=== PATIENT | female | born 1975 | race Caucasian/White ===

== ENCOUNTER 2017-03-19 23:51 | Inpatient (IN) | payer OTHER ==
[2017-03-20] MEDS ORDERED: POLYCILLIN/NS 2 GM/100 ML 2 GM/100 ML BAG IV ONE ×2 (00:39→00:51)
[2017-03-20] MEDS ORDERED: LACTATED RINGERS 1,000 ML ONE (00:39)
[2017-03-20] MEDS ORDERED: SUBLIMAZE IV PRN (00:42)
[2017-03-20] MEDS: LACTATED RINGERS 1,000 ML IV SCH ×3 (00:50→04:46)
[2017-03-20] MEDS ORDERED: BRETHINE SUB-Q PRN (00:51)
[2017-03-20] MEDS ORDERED: ePHEDrine SULFATE IV PRN ×2 (00:51→02:54)
[2017-03-20] MEDS ORDERED: MINERAL OIL PO PRN (00:51)
[2017-03-20] MEDS ORDERED: BRETHINE IVP PRN (00:51)
[2017-03-20] MEDS ORDERED: ZOFRAN IV PRN ×2 (00:51→06:03)
[2017-03-20] MEDS ORDERED: XYLOCAINE 2% INFILTRATI ONE (00:51)
--- NOTE | 2017-03-20 00:51 | History and Physical Report ---
History of Present Illness Date of examination: 03/20/17 Date of admission: 03/20/17 00:46 Chief complaint: Painful contractions History of present illness: 41-year-old at 39 weeks presents in active labor, she is a [facility] patient. 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 course complicated by gestational diabetes well controlled with medication. 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 denies: smoking, alcohol abuse, prescription drug abuse, IV drug use - Obstetrical History Expected Date of Delivery: 03/25/17 Actual Gestation: 39 Week(s) 2 Day(s) : 3 Para: 2 Medications and Allergies Allergies Allergy/AdvReac Type Severity Reaction Status Date / Time No Known Allergies Allergy Verified 03/19/17 23:57 Active Meds: Active Medications Fentanyl (Sublimaze) 100 mcg IV Q2HR PRN PRN Reason: Pain Lactated Ringer's (Lactated Ringers) 1,000 mls @ 125 mls/hr IV DIRECT [facility] Review of Systems Constitutional: no fever, no chills, no fatigue, no weakness Cardiovascular: no chest pain, no orthopnea, no palpitations, no syncope, no lightheadedness, no shortness of breath, no dyspnea on exertion, no paroxysmal nocturnal dyspnea, no high blood pressure Respiratory: no shortness of breath, no dyspnea on exertion, no congestion, no respiratory infections, no home oxygen Gastrointestinal: no abdominal pain, no nausea, no vomiting, no heartburn, no indigestion Genitourinary: leakage of fluid, contractions, no vaginal bleeding, no vaginal discharge - Vital Signs Vital signs: Vital Signs Temp Resp 98.7 F 20 03/20/17 00:40 03/20/17 00:40 Temp Pulse Resp BP Pulse Ox 98.7 F 114 H 20 138/79 03/20/17 00:40 03/20/17 00:43 03/20/17 00:40 03/20/17 00:43 - Physical Exam Cardiovascular: Regular rate, Normal S1, Normal S2 Lungs: Positive: Clear to auscultation, Normal air movement Abdomen: Positive: normal appearance, soft. Negative: distention, tenderness, guarding, rigidity Genitourinary (Female): Positive: normal external genitalia Uterus: Positive: enlarged (EFW ~ 3800). Negative: tender Adnexa: both: normal Extremities: Positive: normal - Obstetrical FHR: category 2 (minimal variability, and tachycardia, no decelerations) Cervical Dilatation: 4.5 Results All other labs normal. Assessment and Plan A: 41-year-old 002 at 39+2 in active labor -Cat 2 tracing (minimal variability and tachycardia, no decelerations) -GDM but unsure of medication (no Prenatals at this time) P: -Admit -Routine labs -GBS prophylaxis -SSI -Oxygen, IV hydration -Epidural prn -Anticipate normal vaginal delivery - Patient Problems (1) 39 weeks gestation of Current Visit: Yes Status: Acute (2) Active labor at term Current Visit: Yes Status: Acute
[2017-03-20] MEDS ORDERED: PITOCin/NS 30 UNIT/500ML 30 UNITS/500 ML BAG IV SCH ×2 (01:00)
[2017-03-20] MEDS ORDERED: LACTATED RINGERS 1,000 ML IV SCH (01:00)
[2017-03-20] MEDS ORDERED: PITOCin/NS 20 UNIT/1000ML DRIP 20 UNITS/1,000 ML BAG IV SCH ×2 (01:00→07:00)
[2017-03-20] MEDS ORDERED: D50W (25GM) Syringe IV PRN ×2 (01:03→06:06)
[2017-03-20 01:04] LABS: Hemoglobin 12.2 gm/dl (10.1-14.3); Mean Corpuscular HGB Conc 34 % (30-34); Mean Corpuscular Hemoglobin 28 pg (28-32); Mean Corpuscular Volume 83 fl (79-97); Platelet Count 233 K/mm3 (140-440); Red Blood Count 4.35 M/mm3 (3.65-5.03); Red Cell Distribution Width 14.9 % (13.2-15.2); White Blood Count 15.5 K/mm3 (4.5-11.0)
[2017-03-20] MEDS ORDERED: ePHEDrine SULFATE ONE (02:27)
[2017-03-20] MEDS ORDERED: NARCAN 2 MG/2 ML IV PRN (02:54)
--- NOTE | 2017-03-20 02:54 | Anesthesia Consultation ---
Anesthesia Consult and Med Hx Date of service: 03/20/17 - Airway Anesthetic Teeth Evaluation: Good ROM Head & Neck: Adequate Mental/Hyoid Distance: Adequate Mallampati Class: Class II Intubation Access Assessment: Probably Good - Pulmonary Exam CTA: Yes - Cardiac Exam Cardiac Exam: RRR - Pre-Operative Health Status ASA Pre-Surgery Classification: ASA2 Proposed Anesthetic Plan: Epidural - Pulmonary Hx Asthma: No COPD: No Hx Pneumonia: No - Cardiovascular System Hx Hypertension: No - Central Nervous System Hx Seizures: No Hx Psychiatric Problems: No - Endocrine Hx Renal Disease: No Hx End Stage Renal Disease: No Hx Hypothyroidism: No Hx Hyperthyroidism: No - Hematic Hx Anemia: No Hx Sickle Cell Disease: No - Other Systems Hx Alcohol Use: No
[2017-03-20] MEDS ORDERED: fentaNYL-BUPIV 2 MCG/ML-0.125% 200 MCG/100 ML BAG EPIDURAL SCH (03:00)
[2017-03-20] MEDS ORDERED: TYLENOL PO PRN ×2 (03:03→06:03)
--- NOTE | 2017-03-20 03:18 | Event Note ---
Date: 03/20/17 Patient with low-grade temp and tachycardia, will treat with oral acetaminophen at this time
[2017-03-20] MEDS ORDERED: POLYCILLIN/NS 1 GM/50 ML 1 GM/50 ML BAG IV SCH (04:52)
--- NOTE | 2017-03-20 05:59 | Procedure Note ---
OB Delivery Note - Delivery Date of Delivery: 03/20/17 Surgeon: SAM COSTA Estimated blood loss: 200cc - Vaginal Delivery presentation: vertex Delivery position: OA Intrapartum events: febrile- temp >100.3, foul smelling fluid, extend. tachycardia Delivery induction: none Delivery augmentation: pitocin Delivery monitor: external FHT, external uterine Route of delivery: Delivery placenta: spontaneous Delivery cord: nuchal cord, 3 umbilical vessels Episiotomy: none Delivery laceration: 2nd degree Delivery repair: vicryl Anesthesia: epidural - A at 1 minute: 8 at 5 minutes: 9 Infant Gender: Female (Time of delivery is 05:32, weight is 7#1 or 3203 g)
[2017-03-20] MEDS ORDERED: BENADRYL PO PRN (06:03)
[2017-03-20] MEDS ORDERED: PHENERGAN PO PRN (06:03)
[2017-03-20] MEDS ORDERED: MILK OF MAGNESIA PO PRN (06:03)
[2017-03-20] MEDS ORDERED: NORCO 5/325 PO PRN (06:03)
[2017-03-20] MEDS ORDERED: TUCKS PAD TP PRN (06:03)
[2017-03-20] MEDS ORDERED: LANSINOH TP PRN (06:03)
[2017-03-20] MEDS ORDERED: DULCOLAX PR PRN (06:03)
[2017-03-20] MEDS ORDERED: PHENERGAN PR PRN (06:03)
[2017-03-20] MEDS ORDERED: SODIUM CHLORIDE FLUSH SYRINGE 10 ML IV NR (07:00)
[2017-03-20] MEDS ORDERED: DERMOPLAST TP PRN (09:16)
[2017-03-20] MEDS: FEOSOL PO SCH (10:14)
[2017-03-20] MEDS: PRENATAL VITAMIN PO SCH (10:14)
[2017-03-20] MEDS: COLACE PO SCH (10:14)
[2017-03-20] MEDS: MOTRIN PO SCH ×2 (12:05→17:45)
[2017-03-20] MEDS ORDERED: LACTATED RINGERS 500 ML IV ONE (17:48)
[2017-03-20] MEDS ORDERED: GARAMYCIN 120 MG in NACL 0.9% 100 ML IV ONE (18:00)
--- NOTE | 2017-03-20 18:14 | Event Note ---
Date: 03/20/17 Notified by nurse that patient's BP is lower than it had been earlier today. BP 86/60; Temp 98.5. Called and notified Dr. Lacy of these vital signs. Dr. Lacy came to bedside and evaluated patient. Manual pulse obtained by Dr. Lacy is 128 bpm. Patient denies headache, dizziness, weakness, chills, fever, nausea or vomiting , abdominal pain or pelvic pain, dysuria, heavy vaginal bleeing, foul smelling discharge, or perineal pain. Patient denies chest pain, shortness of breath, or cough. Patient reports that she feels fine. She states she has been ambulating without difficulty and voiding well. She states she is not in any pain and her appetite is good. Patient is well appearing, alert, oriented, in no apparent distress. She is standing beside the bed and ambulating in the room without difficulty. Abdomen is soft, nontender; funds is firm and midline. Lochia is light and perineal stitches are intact. Probable endometritis. Stat CBC with manual diff, urine culture ordered. Per Dr. Lacy's direct order , IV Ampicillin and Gentamicin ordered. Will follow vital signs closely. Discussed this plan of care with patient and family and patient states she is in agreement with this plan of care.
[2017-03-20] MEDS ORDERED: POLYCILLIN 1,000 MG in NACL 0.9% 50 ML IV SCH (18:30)
[2017-03-20] MEDS ORDERED: GARAMYCIN/NS 120MG/100ML 120 MG/100 ML BAG IV ONE (18:30)
[2017-03-20 18:36] LABS: Basophils % (Auto) 0.2 % (0.0-1.8); Eosinophils % (Auto) 0.3 % (0.0-4.3); Hematocrit 33.2 % (30.3-42.9); Hemoglobin 11.3 gm/dl (10.1-14.3); Mean Corpuscular HGB Conc 34 % (30-34); Mean Corpuscular Hemoglobin 28 pg (28-32); Mean Corpuscular Volume 83 fl (79-97); Platelet Count 231 K/mm3 (140-440); Red Blood Count 3.99 M/mm3 (3.65-5.03); Red Cell Distribution Width 15.2 % (13.2-15.2); White Blood Count 13.6 K/mm3 (4.5-11.0)
[2017-03-20 19:10] LABS: Anion Gap 18 mmol/L; BUN/Creatinine Ratio 12; Blood Urea Nitrogen 7 mg/dL (7-17); Calcium 8.5 mg/dL (8.4-10.2); Carbon Dioxide 17 mmol/L (22-30); Chloride 102.3 mmol/L (98-107); Glucose 164 mg/dL (65-100); Potassium 3.6 mmol/L (3.6-5.0); Sodium 134 mmol/L (137-145)
[2017-03-21] MEDS: MOTRIN PO SCH ×3 (00:05→17:43)
[2017-03-21] MEDS: POLYCILLIN/NS 1 GM/50 ML 1 GM/50 ML BAG IV SCH ×6 (00:27→18:10)
[2017-03-21] MEDS: FEOSOL PO SCH ×2 (00:36→11:26)
[2017-03-21] MEDS: COLACE PO SCH ×2 (00:36→11:26)
[2017-03-21 06:11] LABS: Anion Gap TNR mmol/L; BUN/Creatinine Ratio TNR; Blood Urea Nitrogen TNR mg/dL (7-17); Calcium TNR mg/dL (8.4-10.2); Carbon Dioxide TNR mmol/L (22-30); Chloride TNR mmol/L (98-107); Glucose TNR mg/dL (65-100); Potassium TNR mmol/L (3.6-5.0); Sodium TNR mmol/L (137-145)
[2017-03-21] MEDS ORDERED: LACTATED RINGERS 1,000 ML ONE (06:51)
[2017-03-21 08:17] LABS: Anion Gap 17 mmol/L; BUN/Creatinine Ratio 12; Blood Urea Nitrogen 6 mg/dL (7-17); Calcium 8.4 mg/dL (8.4-10.2); Carbon Dioxide 19 mmol/L (22-30); Glucose 121 mg/dL (65-100); Potassium 3.7 mmol/L (3.6-5.0); Sodium 137 mmol/L (137-145)
[2017-03-21] MEDS ORDERED: GARAMYCIN 80 MG in NACL 0.9% 100 ML IV SCH ×2 (09:00→17:45)
[2017-03-21] MEDS: GARAMYCIN/NS 80 MG/100 ML 100 ML IV SCH ×2 (10:05→17:44)
--- NOTE | 2017-03-21 10:17 | Progress Note ---
Assessment and Plan A: day 1 S/P vaginal delivery of liveborn female on 03/20/17. endometritis. P: Continue Ampicillin and Gentamicin. Encouraged ambulation. Subjective - Subjective Date of service: 03/21/17 Principal diagnosis: day 1 S/P vaginal delivery of liveborn female Interval history: day 1 S/P vaginal delivery. Patient had temperature elevation during labor but has not had since. Yesterday afternoon mild tachycardia and drop in BP was noted. Patient was evaluated by Dr. Lacy and antibiotics were started (Ampicillin and Gentamicin). Patient states she is feeling well. She reports small amount of lochia. She is voiding without difficulty, passing gas, ambulating well, and tolerating a regular diet. Patient denies headache, cough, shortness of breath, chest pain, dizziness, weakness, abdominal pain, nausea or vomiting, leg pain, or foul smelling discharge. Patient reports: appetite normal, voiding normally, pain well controlled, flatus , ambulating normally [place]: doing well Objective - Vital Signs Latest vital signs: Vital Signs Temp Pulse Resp BP BP 03/21/17 08:55 98.3 F 78 20 89/48 03/21/17 01:05 98.4 F 74 20 75/48 03/20/17 16:20 98.5 F 82 20 78/48 74/51 03/20/17 14:23 86/60 84/60 03/20/17 12:30 98.4 F 88 22 80/50 82/52 Intake and Output 03/20/17 03/21/17 03/21/17 23:59 07:59 15:59 Intake Total 120 410 120 Balance 120 410 120 Intake: IV 50 POLYCILLIN/NS 1 GM/50 ML 50 1 gm In 50 ml @ 100 mls/ hr IV Q6HR [facility] Rx#: [id number] Oral 120 360 120 Other: Total, Intake Amount 120 240 120 # Voids Void 1 1 1 - Exam Breasts: Present: deferred Cardiovascular: Present: Regular rate, Normal S1, Normal S2, No murmurs Lungs: Present: Clear to auscultation Abdomen: Present: normal appearance, soft, normal bowel sounds. Absent: distention, tenderness, guarding, rigidity Uterus: Present: normal, firm, fundal height below umbilicus. Absent: bogginess , tenderness Extremities: Present: normal. Absent: tenderness, edema - Labs Labs: Abnormal lab results 03/20/17 03/20/17 03/21/17 Range/Units 17:52 18:22 01:19 WBC 13.6 H (4.5-11.0) K/mm3 Lymph % (Auto) 7.4 L (13.4-35.0) % Lymph # 1.0 L (1.2-5.4) K/mm3 Seg Neutrophils % 89.5 H (40.0-70.0) % Seg Neutrophils # 12.2 H (1.8-7.7) K/mm3 Sodium 134 L (137-145) mmol/L Carbon Dioxide 17 L (22-30) mmol/L BUN (7-17) mg/dL Creatinine 0.6 L (0.7-1.2) mg/dL Glucose 164 H (65-100) mg/dL POC Glucose 147 H (70-105) 03/21/17 03/21/17 Range/Units 06:43 06:52 WBC (4.5-11.0) K/mm3 Lymph % (Auto) (13.4-35.0) % Lymph # (1.2-5.4) K/mm3 Seg Neutrophils % (40.0-70.0) % Seg Neutrophils # (1.8-7.7) K/mm3 Sodium (137-145) mmol/L Carbon Dioxide 19 L (22-30) mmol/L BUN 6 L (7-17) mg/dL Creatinine 0.5 L (0.7-1.2) mg/dL Glucose 121 H (65-100) mg/dL POC Glucose 121 H (70-105)
[2017-03-21] MEDS: PRENATAL VITAMIN PO SCH (11:24)
[2017-03-21] MEDS: SENOKOT S PO SCH (13:11)
[2017-03-22] MEDS: MOTRIN PO SCH ×4 (00:15→17:25)
[2017-03-22] MEDS: POLYCILLIN/NS 1 GM/50 ML 1 GM/50 ML BAG IV SCH ×4 (00:30→12:06)
[2017-03-22] MEDS: GARAMYCIN/NS 80 MG/100 ML 100 ML IV SCH ×2 (02:04→09:20)
[2017-03-22] MEDS: FEOSOL PO SCH ×3 (02:06→22:01)
[2017-03-22] MEDS: COLACE PO SCH ×3 (02:07→22:02)
[2017-03-22] MEDS: PRENATAL VITAMIN PO SCH (09:19)
--- NOTE | 2017-03-22 11:44 | Progress Note ---
Assessment and Plan A: day 2 S/P vaginal delivery. endometritis. P: Will discontinue antibiotics. Will discharge patient home this evening if OK with Dr. Lacy. Discussed instructions and warning signs with patient. Subjective - Subjective Date of service: 03/22/17 Principal diagnosis: day 2 S/P vaginal delivery of liveborn female Interval history: day 2 S/P vaginal delivery. Patient is doing well. She reports small amount of lochia and no large clots. Patient is voiding without difficulty and ambulating well. Tolerating a regular diet without nausea or vomiting. Patient denies headache, chest pain, cough, shortness of breath, abdominal pain, nausea or vomiting, leg pain, symptoms of depression or any other problems. Patient reports: appetite normal, voiding normally, pain well controlled, flatus , ambulating normally : doing well Objective - Vital Signs Latest vital signs: Vital Signs Temp Pulse Resp BP 03/22/17 08:35 98 F 75 18 95/68 03/22/17 00:25 97.3 F L 77 20 90/62 03/21/17 17:35 98.1 F 67 20 89/57 Intake and Output 03/21/17 03/22/17 03/22/17 23:59 07:59 15:59 Intake Total 750 510 240 Balance 750 510 240 Intake: IV 150 150 Garamycin/Ns 80 mg/100 ml 100 100 100 ml @ 200 mls/hr IV Q8H [facility] Rx#:[id number] POLYCILLIN/NS 1 GM/50 ML 50 50 1 gm In 50 ml @ 100 mls/ hr IV Q6HR [facility] Rx#: [id number] Oral 600 360 240 Other: Total, Intake Amount 240 120 240 # Voids Void 1 1 1 - Exam Breasts: Present: deferred Cardiovascular: Present: Regular rate, Normal S1, Normal S2 Lungs: Present: Clear to auscultation Abdomen: Present: normal appearance, soft, normal bowel sounds. Absent: distention, tenderness, guarding, rigidity Uterus: Present: normal, firm, fundal height below umbilicus. Absent: bogginess , tenderness Extremities: Present: normal. Absent: tenderness, edema
[2017-03-22 13:34] LABS: Hematocrit 28.1 % (30.3-42.9); Hemoglobin 9.6 gm/dl (10.1-14.3); Mean Corpuscular HGB Conc 34 % (30-34); Mean Corpuscular Hemoglobin 29 pg (28-32); Mean Corpuscular Volume 84 fl (79-97); Platelet Count 192 K/mm3 (140-440); Red Blood Count 3.35 M/mm3 (3.65-5.03); Red Cell Distribution Width 15.5 % (13.2-15.2); White Blood Count 7.9 K/mm3 (4.5-11.0)
[2017-03-22 15:46] LABS: Blastocytes % (Manual) 0 %
[2017-03-22 15:47] LABS: Basophils % (Manual) 0 % (0.0-1.8)
[2017-03-22 15:48] LABS: Anisocytosis 1+; Hypochromasia 1+; Smudge Cells 1+
[2017-03-22 15:49] LABS: Diff Status Complete; Platelet Estimate Consistent w Auto
--- NOTE | 2017-03-22 16:06 | Event Note ---
Date: 03/22/17 TSH mildly abnormal at 6.550. Pulse [address] Lacy and Dr. Lacy states to keep patient in hospital tonight and obtain hospitalist consult. Spoke with Dr. Driscoll t 16:00 and ordered consult in computer. Discussed this plan with patient and family.
[2017-03-23] MEDS: SENOKOT S PO SCH (05:35)
[2017-03-23] MEDS: MOTRIN PO SCH ×2 (05:36→12:14)
--- NOTE | 2017-03-23 08:03 | Consultation ---
History of Present Illness - Reason for Consult Consult date: 03/23/17 High TSH Requesting physician: MIKE BURRIS - History of Present Illness [place]: Consulted for High TSH.No history of Hypothyroidism. 3 days. Past Medical History: no pertinent history Past Surgical History: no surgical history [employer] History: denies: chlamydia, gonorrhea, hepatitis B, hepatitis C, herpes, HIV , syphilis, trichomonas Social history: full code. denies: smoking, alcohol abuse, prescription drug abuse, IV drug use Past History Past Medical History: anemia Social history: full code. denies: smoking, alcohol abuse, prescription drug abuse, IV drug use Medications and Allergies Allergies Allergy/AdvReac Type Severity Reaction Status Date / Time No Known Allergies Allergy Verified 03/19/17 23:57 Home Medications Medication Instructions Recorded Confirmed Last Taken Type HYDROcodone/ACETAMINOPHEN [[place] 1 each PO Q6HR #7 tablet 03/20/17 Unknown Rx 5-325 Tablet] Ibuprofen [Motrin 600 MG tab] 600 mg PO Q8H PRN #30 tablet 03/20/17 Unknown Rx Multivitamin with Iron 1 each PO DAILY #30 tablet 03/20/17 Unknown Rx [Multivitamins with Iron] Vit-Fe Fumar-FA [ 1 tab PO QDAY 03/20/17 03/20/17 03/19/17 History Vitamin] Active Meds: Active Medications Acetaminophen (Tylenol) 650 mg PO Q4H PRN PRN Reason: Pain MILD(1-3)/Fever >100.5/FIELD Acetaminophen/Hydrocodone Bitart ([place] 5/325) 2 each PO Q6H PRN PRN Reason: Pain, Moderate (4-6) Last Admin: 03/22/17 00:55 Dose: 2 each Benzocaine/Menthol (Dermoplast) 1 spray TP PRN PRN PRN Reason: Episiotomy Pain Last Admin: 03/20/17 10:15 Dose: 1 spray Bisacodyl (Dulcolax) 10 mg [place] BID PRN PRN Reason: Constipation Diphenhydramine HCl (Benadryl) 25 mg PO Q6H PRN PRN Reason: Itching Docusate Sodium (Colace) 100 mg PO BID [facility] Last Admin: 03/22/17 22:02 Dose: 100 mg Ferrous Sulfate (Feosol) 325 mg PO BID [facility] Last Admin: 03/22/17 22:01 Dose: 325 mg Oxytocin/Sodium Chloride (Pitocin/Ns 20 Unit/1000ml Drip) 20 units in 1,000 mls @ 250 mls/hr IV DIRECT [facility] Last Admin: 03/20/17 05:50 Dose: 250 mls/hr Ibuprofen (Motrin) 600 mg PO Q6H [facility] Last Admin: 03/23/17 05:36 Dose: Not Given Insulin Human Regular (Novolin R) 0 units SUB-Q Q6HR [facility] PRN Reason: Protocol Last Admin: 03/23/17 01:03 Dose: Not Given Magnesium Hydroxide (Milk Of Magnesia) 30 ml PO HS PRN PRN Reason: Constipation Multi-Ingredient Ointment (Lansinoh) 1 applic TP PRN PRN PRN Reason: Sore Nipples Multivitamins/Iron/Calcium ( Vitamin) 1 each PO QDAY [facility] Last Admin: 03/22/17 09:19 Dose: 1 each Promethazine HCl (Phenergan) 25 mg AK Q6H PRN PRN Reason: Nausea And Vomiting Promethazine HCl (Phenergan) 25 mg PO Q6H PRN PRN Reason: Nausea And Vomiting Senna/Docusate Sodium (Senokot S) 2 tab PO Q12H [facility] Last Admin: 03/23/17 05:35 Dose: Not Given Witch [place]/Glycerin (Tucks Pad) 1 each TP PRN PRN PRN Reason: Hemorrhoid/cleansing/soothing Last Admin: 03/20/17 10:16 Dose: 1 each Review of Systems All systems: negative Exam - Constitutional Vitals: Temp Pulse Resp BP Pulse Ox 98.6 F 66 18 108/70 97 03/23/17 00:40 03/23/17 00:40 03/23/17 05:36 03/23/17 00:40 03/20/17 07:09 General appearance: Present: no acute distress, well-nourished - EENT Eyes: Present: PERRL ENT: hearing intact, clear oral mucosa - Neck Neck: Present: supple, normal ROM - Respiratory Respiratory effort: normal Respiratory: bilateral: CTA - Cardiovascular Heart Sounds: Present: S1 & S2. Absent: rub, click - Extremities Extremities: pulses symmetrical, No edema Peripheral Pulses: within normal limits - Abdominal General gastrointestinal: Present: soft, non-tender, non-distended, normal bowel sounds Female genitourinary: Present: normal - Integumentary Integumentary: Present: clear, warm, dry - Musculoskeletal Musculoskeletal: gait normal, strength equal bilaterally - Psychiatric Psychiatric: appropriate mood/affect, intact judgment & insight - Neurologic Neurologic: CNII-XII intact, moves all extremities Results - Labs CBC & Chem 7: 03/22/17 13:13 03/21/17 06:52 Labs: Abnormal lab results 03/22/17 03/22/17 03/23/17 Range/Units 13:13 13:13 00:41 RBC 3.35 L (3.65-5.03) M/mm3 Hgb 9.6 L (10.1-14.3) gm/dl Hct 28.1 L (30.3-42.9) % RDW 15.5 H (13.2-15.2) % Seg Neuts % (Manual) 76.0 H (40.0-70.0) % Lymphocytes % (Manual) 10.0 L (13.4-35.0) % Lymphocytes # (Manual) 0.8 L (1.2-5.4) K/mm3 POC Glucose 112 H (70-105) TSH 6.550 H (0.270-4.200) mlU/mL Short CBC 03/22/17 Range/Units 13:13 WBC 7.9 (4.5-11.0) K/mm3 Hgb 9.6 L (10.1-14.3) gm/dl Hct 28.1 L (30.3-42.9) % Plt Count 192 (140-440) K/mm3 Assessment and Plan - Patient Problems (1) Elevated TSH Current Visit: Yes Status: Acute Plan to address problem: Possibly sec to Sick Euthyroid syndrome.Check Thyroid profile.Patient may follow with pcp for Thyroid profile.No Synthyroid at this time. Patient is cleared for discharge after thyroid profile is drawn.
--- NOTE | 2017-03-23 08:06 | Progress Note ---
<FLAQUITO GARCIA S - Last Filed: 03/23/17 08:08> Hospitalist Physical - Constitutional Vitals: Temp Pulse Resp BP Pulse Ox 98.6 F 66 18 108/70 97 03/23/17 00:40 03/23/17 00:40 03/23/17 05:36 03/23/17 00:40 03/20/17 07:09 Results - Labs CBC & Chem 7: 03/22/17 13:13 03/21/17 06:52 Labs: Laboratory Last Values WBC 7.9 K/mm3 (4.5-11.0) 03/22/17 13:13 RBC 3.35 M/mm3 (3.65-5.03) L 03/22/17 13:13 Hgb 9.6 gm/dl (10.1-14.3) L 03/22/17 13:13 Hct 28.1 % (30.3-42.9) L 03/22/17 13:13 MCV 84 fl (79-97) 03/22/17 13:13 MCH 29 pg (28-32) 03/22/17 13:13 MCHC 34 % (30-34) 03/22/17 13:13 RDW 15.5 % (13.2-15.2) H 03/22/17 13:13 Plt Count 192 K/mm3 (140-440) 03/22/17 13:13 Lymph % (Auto) 7.4 % (13.4-35.0) L 03/20/17 17:52 [place] % (Auto) 2.6 % (0.0-7.3) 03/20/17 17:52 Eos % (Auto) 0.3 % (0.0-4.3) 03/20/17 17:52 Baso % (Auto) Drop Hammer Mechanic 03/22/17 13:13 Lymph # 1.0 K/mm3 (1.2-5.4) L 03/20/17 17:52 [place] # 0.4 K/mm3 (0.0-0.8) 03/20/17 17:52 Eos # 0.0 K/mm3 (0.0-0.4) 03/20/17 17:52 Baso # 0.0 K/mm3 (0.0-0.1) 03/20/17 17:52 Add Manual Diff Complete 03/22/17 13:13 Total Counted 100 03/22/17 13:13 Seg Neutrophils % 89.5 % (40.0-70.0) H 03/20/17 17:52 Seg Neuts % (Manual) 76.0 % (40.0-70.0) H 03/22/17 13:13 Band Neutrophils % 11.0 % 03/22/17 13:13 Lymphocytes % (Manual) 10.0 % (13.4-35.0) L 03/22/17 13:13 Reactive Lymphs % (Man) 0 % 03/22/17 13:13 Monocytes % (Manual) 2.0 % (0.0-7.3) 03/22/17 13:13 Eosinophils % (Manual) 1.0 % (0.0-4.3) 03/22/17 13:13 Basophils % (Manual) 0 % (0.0-1.8) 03/22/17 13:13 Metamyelocytes % 0 % 03/22/17 13:13 Myelocytes % 0 % 03/22/17 13:13 Promyelocytes % 0 % 03/22/17 13:13 Blast Cells % 0 % 03/22/17 13:13 Nucleated RBC % Not Reportable 03/22/17 13:13 Seg Neutrophils # 12.2 K/mm3 (1.8-7.7) H 03/20/17 17:52 Seg Neutrophils # Man 6.0 K/mm3 (1.8-7.7) 03/22/17 13:13 Band Neutrophils # 0.9 K/mm3 03/22/17 13:13 Lymphocytes # (Manual) 0.8 K/mm3 (1.2-5.4) L 03/22/17 13:13 Abs React Lymphs (Man) 0.0 K/mm3 03/22/17 13:13 Monocytes # (Manual) 0.2 K/mm3 (0.0-0.8) 03/22/17 13:13 Eosinophils # (Manual) 0.1 K/mm3 (0.0-0.4) 03/22/17 13:13 Basophils # (Manual) 0.0 K/mm3 (0.0-0.1) 03/22/17 13:13 Metamyelocytes # 0.0 K/mm3 03/22/17 13:13 Myelocytes # 0.0 K/mm3 03/22/17 13:13 Promyelocytes # 0.0 K/mm3 03/22/17 13:13 Blast Cells # 0.0 K/mm3 03/22/17 13:13 WBC Morphology Not Reportable 03/22/17 13:13 Hypersegmented Neuts Not Reportable 03/22/17 13:13 Hyposegmented Neuts Not Reportable 03/22/17 13:13 Hypogranular Neuts Not Reportable 03/22/17 13:13 Smudge Cells 1+ 03/22/17 13:13 Toxic Granulation Not Reportable 03/22/17 13:13 Toxic Vacuolation Not Reportable 03/22/17 13:13 Dohle Bodies Not Reportable 03/22/17 13:13 Pelger-Huet Anomaly Not Reportable 03/22/17 13:13 Ben Rods Not Reportable 03/22/17 13:13 Platelet Estimate Consistent w auto 03/22/17 13:13 Clumped Platelets Not Reportable 03/22/17 13:13 Plt Clumps, EDTA Not Reportable 03/22/17 13:13 Large Platelets Not Reportable 03/22/17 13:13 Giant Platelets Not Reportable 03/22/17 13:13 Platelet Satelliting Not Reportable 03/22/17 13:13 Plt Morphology Comment Not Reportable 03/22/17 13:13 RBC Morphology Not Reportable 03/22/17 13:13 Dimorphic RBCs Not Reportable 03/22/17 13:13 Polychromasia Not Reportable 03/22/17 13:13 Hypochromasia 1+ 03/22/17 13:13 Poikilocytosis Not Reportable 03/22/17 13:13 Anisocytosis 1+ 03/22/17 13:13 Microcytosis Not Reportable 03/22/17 13:13 Macrocytosis Not Reportable 03/22/17 13:13 Spherocytes Not Reportable 03/22/17 13:13 Pappenheimer Bodies Not Reportable 03/22/17 13:13 Sickle Cells Not Reportable 03/22/17 13:13 Target Cells Not Reportable 03/22/17 13:13 Tear Drop Cells Not Reportable 03/22/17 13:13 Ovalocytes Not Reportable 03/22/17 13:13 Helmet Cells Not Reportable 03/22/17 13:13 [place] Bodies Not Reportable 03/22/17 13:13 [place] Rings Not Reportable 03/22/17 13:13 [place] Cells Not Reportable 03/22/17 13:13 Bite Cells Not Reportable 03/22/17 13:13 Crenated Cell Not Reportable 03/22/17 13:13 Elliptocytes Not Reportable 03/22/17 13:13 Acanthocytes (Spur) Not Reportable 03/22/17 13:13 Rouleaux Not Reportable 03/22/17 13:13 Hemoglobin C Crystals Not Reportable 03/22/17 13:13 Schistocytes Not Reportable 03/22/17 13:13 Malaria parasites Not Reportable 03/22/17 13:13 Suresh Bodies Not Reportable 03/22/17 13:13 Hem Pathologist Commnt No 03/22/17 13:13 Sodium 137 mmol/L (137-145) 03/21/17 06:52 Potassium 3.7 mmol/L (3.6-5.0) 03/21/17 06:52 Chloride 105.0 mmol/L (98-107) 03/21/17 06:52 Carbon Dioxide 19 mmol/L (22-30) L 03/21/17 06:52 Anion Gap 17 mmol/L 03/21/17 06:52 BUN 6 mg/dL (7-17) L 03/21/17 06:52 Creatinine 0.5 mg/dL (0.7-1.2) L 03/21/17 06:52 Estimated GFR > 60 ml/min 03/21/17 06:52 BUN/Creatinine Ratio 12 % 03/21/17 06:52 Glucose 121 mg/dL (65-100) H 03/21/17 06:52 POC Glucose 86 (70-105) 03/23/17 06:54 Calcium 8.4 mg/dL (8.4-10.2) 03/21/17 06:52 TSH 6.550 mlU/mL (0.270-4.200) H 03/22/17 13:13 Free T4 1.06 ng/dL (0.76-1.46) 03/22/17 13:13 RPR Nonreactive (Nonreactive) 03/20/17 00:50 Blood Type O POSITIVE 03/20/17 00:50 Antibody Screen Negative 03/20/17 00:50 <ALESSANDRA ANDREWS - Last Filed: 03/23/17 13:58> Assessment and Plan Assessment and plan: Patient is a 41 years old female, who was consulted from OBGYN to us for medical management of Elevated TSH . Patient day #3. Patient had vaginal delivery of liveborn female, she is stable. Patient denies fever, chills chest pain, headache. Patient denies pain at this time. Elevated TSH Most likely due to sick thyroid syndrome Normal T4 Patient advised to follow up [employer] as outpatient No Synthroid at this time S/P vaginal delivery of liveborn female Managed by OBGYN History Interval history: Patient denies any pain at present time. Labs and nurse notes reviewed. Hospitalist Physical - Constitutional Vitals: Temp Pulse Resp BP Pulse Ox 98.6 F 66 18 108/70 97 03/23/17 00:40 03/23/17 00:40 03/23/17 05:36 03/23/17 00:40 03/20/17 07:09 General appearance: Present: no acute distress - EENT Eyes: Present: PERRL ENT: hearing intact - Neck Neck: Present: supple - Respiratory Respiratory effort: normal Respiratory: bilateral: CTA - Cardiovascular Rhythm: regular Heart Sounds: Present: S1 & S2 Peripheral Pulses: within normal limits - Abdominal General gastrointestinal: soft, non-tender - Integumentary Integumentary: Present: clear, warm, dry - Psychiatric Psychiatric: appropriate mood/affect - Neurologic Neurologic: CNII-XII intact, moves all extremities - Allied Health Allied health notes reviewed: nursing Results - Labs CBC & Chem 7: 03/22/17 13:13 03/21/17 06:52 Labs: Laboratory Last Values WBC 7.9 K/mm3 (4.5-11.0) 03/22/17 13:13 RBC 3.35 M/mm3 (3.65-5.03) L 03/22/17 13:13 Hgb 9.6 gm/dl (10.1-14.3) L 03/22/17 13:13 Hct 28.1 % (30.3-42.9) L 03/22/17 13:13 MCV 84 fl (79-97) 03/22/17 13:13 MCH 29 pg (28-32) 03/22/17 13:13 MCHC 34 % (30-34) 03/22/17 13:13 RDW 15.5 % (13.2-15.2) H 03/22/17 13:13 Plt Count 192 K/mm3 (140-440) 03/22/17 13:13 Lymph % (Auto) 7.4 % (13.4-35.0) L 03/20/17 17:52 [place] % (Auto) 2.6 % (0.0-7.3) 03/20/17 17:52 Eos % (Auto) 0.3 % (0.0-4.3) 03/20/17 17:52 Baso % (Auto) Drop Hammer Mechanic 03/22/17 13:13 Lymph # 1.0 K/mm3 (1.2-5.4) L 03/20/17 17:52 [place] # 0.4 K/mm3 (0.0-0.8) 03/20/17 17:52 Eos # 0.0 K/mm3 (0.0-0.4) 03/20/17 17:52 Baso # 0.0 K/mm3 (0.0-0.1) 03/20/17 17:52 Add Manual Diff Complete 03/22/17 13:13 Total Counted 100 03/22/17 13:13 Seg Neutrophils % 89.5 % (40.0-70.0) H 03/20/17 17:52 Seg Neuts % (Manual) 76.0 % (40.0-70.0) H 03/22/17 13:13 Band Neutrophils % 11.0 % 03/22/17 13:13 Lymphocytes % (Manual) 10.0 % (13.4-35.0) L 03/22/17 13:13 Reactive Lymphs % (Man) 0 % 03/22/17 13:13 Monocytes % (Manual) 2.0 % (0.0-7.3) 03/22/17 13:13 Eosinophils % (Manual) 1.0 % (0.0-4.3) 03/22/17 13:13 Basophils % (Manual) 0 % (0.0-1.8) 03/22/17 13:13 Metamyelocytes % 0 % 03/22/17 13:13 Myelocytes % 0 % 03/22/17 13:13 Promyelocytes % 0 % 03/22/17 13:13 Blast Cells % 0 % 03/22/17 13:13 Nucleated RBC % Not Reportable 03/22/17 13:13 Seg Neutrophils # 12.2 K/mm3 (1.8-7.7) H 03/20/17 17:52 Seg Neutrophils # Man 6.0 K/mm3 (1.8-7.7) 03/22/17 13:13 Band Neutrophils # 0.9 K/mm3 03/22/17 13:13 Lymphocytes # (Manual) 0.8 K/mm3 (1.2-5.4) L 03/22/17 13:13 Abs React Lymphs (Man) 0.0 K/mm3 03/22/17 13:13 Monocytes # (Manual) 0.2 K/mm3 (0.0-0.8) 03/22/17 13:13 Eosinophils # (Manual) 0.1 K/mm3 (0.0-0.4) 03/22/17 13:13 Basophils # (Manual) 0.0 K/mm3 (0.0-0.1) 03/22/17 13:13 Metamyelocytes # 0.0 K/mm3 03/22/17 13:13 Myelocytes # 0.0 K/mm3 03/22/17 13:13 Promyelocytes # 0.0 K/mm3 03/22/17 13:13 Blast Cells # 0.0 K/mm3 03/22/17 13:13 WBC Morphology Not Reportable 03/22/17 13:13 Hypersegmented Neuts Not Reportable 03/22/17 13:13 Hyposegmented Neuts Not Reportable 03/22/17 13:13 Hypogranular Neuts Not Reportable 03/22/17 13:13 Smudge Cells 1+ 03/22/17 13:13 Toxic Granulation Not Reportable 03/22/17 13:13 Toxic Vacuolation Not Reportable 03/22/17 13:13 Dohle Bodies Not Reportable 03/22/17 13:13 Pelger-Huet Anomaly Not Reportable 03/22/17 13:13 Ben Rods Not Reportable 03/22/17 13:13 Platelet Estimate Consistent w auto 03/22/17 13:13 Clumped Platelets Not Reportable 03/22/17 13:13 Plt Clumps, EDTA Not Reportable 03/22/17 13:13 Large Platelets Not Reportable 03/22/17 13:13 Giant Platelets Not Reportable 03/22/17 13:13 Platelet Satelliting Not Reportable 03/22/17 13:13 Plt Morphology Comment Not Reportable 03/22/17 13:13 RBC Morphology Not Reportable 03/22/17 13:13 Dimorphic RBCs Not Reportable 03/22/17 13:13 Polychromasia Not Reportable 03/22/17 13:13 Hypochromasia 1+ 03/22/17 13:13 Poikilocytosis Not Reportable 03/22/17 13:13 Anisocytosis 1+ 03/22/17 13:13 Microcytosis Not Reportable 03/22/17 13:13 Macrocytosis Not Reportable 03/22/17 13:13 Spherocytes Not Reportable 03/22/17 13:13 Pappenheimer Bodies Not Reportable 03/22/17 13:13 Sickle Cells Not Reportable 03/22/17 13:13 Target Cells Not Reportable 03/22/17 13:13 Tear Drop Cells Not Reportable 03/22/17 13:13 Ovalocytes Not Reportable 03/22/17 13:13 Helmet Cells Not Reportable 03/22/17 13:13 [place] Bodies Not Reportable 03/22/17 13:13 [place] Rings Not Reportable 03/22/17 13:13 Yari Cells Not Reportable 03/22/17 13:13 Bite Cells Not Reportable 03/22/17 13:13 Crenated Cell Not Reportable 03/22/17 13:13 Elliptocytes Not Reportable 03/22/17 13:13 Acanthocytes (Spur) Not Reportable 03/22/17 13:13 Rouleaux Not Reportable 03/22/17 13:13 Hemoglobin C Crystals Not Reportable 03/22/17 13:13 Schistocytes Not Reportable 03/22/17 13:13 Malaria parasites Not Reportable 03/22/17 13:13 Suresh Bodies Not Reportable 03/22/17 13:13 Hem Pathologist Commnt No 03/22/17 13:13 Sodium 137 mmol/L (137-145) 03/21/17 06:52 Potassium 3.7 mmol/L (3.6-5.0) 03/21/17 06:52 Chloride 105.0 mmol/L (98-107) 03/21/17 06:52 Carbon Dioxide 19 mmol/L (22-30) L 03/21/17 06:52 Anion Gap 17 mmol/L 03/21/17 06:52 BUN 6 mg/dL (7-17) L 03/21/17 06:52 Creatinine 0.5 mg/dL (0.7-1.2) L 03/21/17 06:52 Estimated GFR > 60 ml/min 03/21/17 06:52 BUN/Creatinine Ratio 12 % 03/21/17 06:52 Glucose 121 mg/dL (65-100) H 03/21/17 06:52 POC Glucose 86 (70-105) 03/23/17 06:54 Calcium 8.4 mg/dL (8.4-10.2) 03/21/17 06:52 TSH 6.550 mlU/mL (0.270-4.200) H 03/22/17 13:13 Free T4 1.06 ng/dL (0.76-1.46) 03/22/17 13:13 RPR Nonreactive (Nonreactive) 03/20/17 00:50 Blood Type O POSITIVE 03/20/17 00:50 Antibody Screen Negative 03/20/17 00:50
[2017-03-23 08:53] VITALS: BP 110/74
--- NOTE | 2017-03-23 11:02 | Progress Note ---
Assessment and Plan - Patient Problems (1) (normal spontaneous vaginal delivery) Onset Date: 03/23/17 Current Visit: Yes Status: Resolved Plan to address problem: A: S/P - PPD #3 Doing well Elevated TSH - stable P: May go home today Cleared by Hospitalist to follow up as outpatient (2) Elevated TSH Onset Date: 03/23/17 Current Visit: Yes Status: Acute Subjective - Subjective Date of service: 03/23/17 Principal diagnosis: day #3 - S/P vaginal delivery of liveborn female Interval history: Pt is feeling well without complaints. Bleeding improved. She was cleared by the Hospitalist and ready to go home. Patient reports: appetite normal, voiding normally, pain well controlled, flatus , ambulating normally [place]: doing well, nursing well Objective - Vital Signs Latest vital signs: Vital Signs Temp Pulse Resp BP BP 03/23/17 07:40 97.9 F 74 18 110/74 03/23/17 05:36 18 03/23/17 00:40 98.6 F 66 20 108/70 03/22/17 16:12 98.5 F 83 18 108/71 Intake and Output 03/22/17 03/23/17 03/23/17 22:59 06:59 14:59 Intake Total 480 240 Balance 480 240 Intake: Oral 480 240 Other: Total, Intake Amount 120 240 # Voids Void 1 - Exam Breasts: Present: deferred Abdomen: Present: normal appearance, soft Uterus: Present: normal, firm, fundal height below umbilicus Extremities: Present: normal - Labs Labs: Abnormal lab results 03/22/17 03/22/17 03/23/17 Range/Units 13:13 13:13 00:41 RBC 3.35 L (3.65-5.03) M/mm3 Hgb 9.6 L (10.1-14.3) gm/dl Hct 28.1 L (30.3-42.9) % RDW 15.5 H (13.2-15.2) % Seg Neuts % (Manual) 76.0 H (40.0-70.0) % Lymphocytes % (Manual) 10.0 L (13.4-35.0) % Lymphocytes # (Manual) 0.8 L (1.2-5.4) K/mm3 POC Glucose 112 H (70-105) TSH 6.550 H (0.270-4.200) mlU/mL Laboratory Last Values WBC 7.9 K/mm3 (4.5-11.0) 03/22/17 13:13 RBC 3.35 M/mm3 (3.65-5.03) L 03/22/17 13:13 Hgb 9.6 gm/dl (10.1-14.3) L 03/22/17 13:13 Hct 28.1 % (30.3-42.9) L 03/22/17 13:13 MCV 84 fl (79-97) 03/22/17 13:13 MCH 29 pg (28-32) 03/22/17 13:13 MCHC 34 % (30-34) 03/22/17 13:13 RDW 15.5 % (13.2-15.2) H 03/22/17 13:13 Plt Count 192 K/mm3 (140-440) 03/22/17 13:13 Lymph % (Auto) 7.4 % (13.4-35.0) L 03/20/17 17:52 [place] % (Auto) 2.6 % (0.0-7.3) 03/20/17 17:52 Eos % (Auto) 0.3 % (0.0-4.3) 03/20/17 17:52 Baso % (Auto) [place] 03/22/17 13:13 Lymph # 1.0 K/mm3 (1.2-5.4) L 03/20/17 17:52 [place] # 0.4 K/mm3 (0.0-0.8) 03/20/17 17:52 Eos # 0.0 K/mm3 (0.0-0.4) 03/20/17 17:52 Baso # 0.0 K/mm3 (0.0-0.1) 03/20/17 17:52 Add Manual Diff Complete 03/22/17 13:13 Total Counted 100 03/22/17 13:13 Seg Neutrophils % 89.5 % (40.0-70.0) H 03/20/17 17:52 Seg Neuts % (Manual) 76.0 % (40.0-70.0) H 03/22/17 13:13 Band Neutrophils % 11.0 % 03/22/17 13:13 Lymphocytes % (Manual) 10.0 % (13.4-35.0) L 03/22/17 13:13 Reactive Lymphs % (Man) 0 % 03/22/17 13:13 Monocytes % (Manual) 2.0 % (0.0-7.3) 03/22/17 13:13 Eosinophils % (Manual) 1.0 % (0.0-4.3) 03/22/17 13:13 Basophils % (Manual) 0 % (0.0-1.8) 03/22/17 13:13 Metamyelocytes % 0 % 03/22/17 13:13 Myelocytes % 0 % 03/22/17 13:13 Promyelocytes % 0 % 03/22/17 13:13 Blast Cells % 0 % 03/22/17 13:13 Nucleated RBC % Not Reportable 03/22/17 13:13 Seg Neutrophils # 12.2 K/mm3 (1.8-7.7) H 03/20/17 17:52 Seg Neutrophils # Man 6.0 K/mm3 (1.8-7.7) 03/22/17 13:13 Band Neutrophils # 0.9 K/mm3 03/22/17 13:13 Lymphocytes # (Manual) 0.8 K/mm3 (1.2-5.4) L 03/22/17 13:13 Abs React Lymphs (Man) 0.0 K/mm3 03/22/17 13:13 Monocytes # (Manual) 0.2 K/mm3 (0.0-0.8) 03/22/17 13:13 Eosinophils # (Manual) 0.1 K/mm3 (0.0-0.4) 03/22/17 13:13 Basophils # (Manual) 0.0 K/mm3 (0.0-0.1) 03/22/17 13:13 Metamyelocytes # 0.0 K/mm3 03/22/17 13:13 Myelocytes # 0.0 K/mm3 03/22/17 13:13 Promyelocytes # 0.0 K/mm3 03/22/17 13:13 Blast Cells # 0.0 K/mm3 03/22/17 13:13 WBC Morphology Not Reportable 03/22/17 13:13 Hypersegmented Neuts Not Reportable 03/22/17 13:13 Hyposegmented Neuts Not Reportable 03/22/17 13:13 Hypogranular Neuts Not Reportable 03/22/17 13:13 Smudge Cells 1+ 03/22/17 13:13 Toxic Granulation Not Reportable 03/22/17 13:13 Toxic Vacuolation Not Reportable 03/22/17 13:13 Dohle Bodies Not Reportable 03/22/17 13:13 Pelger-Huet Anomaly Not Reportable 03/22/17 13:13 Ben Rods Not Reportable 03/22/17 13:13 Platelet Estimate Consistent w auto 03/22/17 13:13 Clumped Platelets Not Reportable 03/22/17 13:13 Plt Clumps, EDTA Not Reportable 03/22/17 13:13 Large Platelets Not Reportable 03/22/17 13:13 Giant Platelets Not Reportable 03/22/17 13:13 Platelet Satelliting Not Reportable 03/22/17 13:13 Plt Morphology Comment Not Reportable 03/22/17 13:13 RBC Morphology Not Reportable 03/22/17 13:13 Dimorphic RBCs Not Reportable 03/22/17 13:13 Polychromasia Not Reportable 03/22/17 13:13 Hypochromasia 1+ 03/22/17 13:13 Poikilocytosis Not Reportable 03/22/17 13:13 Anisocytosis 1+ 03/22/17 13:13 Microcytosis Not Reportable 03/22/17 13:13 Macrocytosis Not Reportable 03/22/17 13:13 Spherocytes Not Reportable 03/22/17 13:13 Pappenheimer Bodies Not Reportable 03/22/17 13:13 Sickle Cells Not Reportable 03/22/17 13:13 Target Cells Not Reportable 03/22/17 13:13 Tear Drop Cells Not Reportable 03/22/17 13:13 Ovalocytes Not Reportable 03/22/17 13:13 Helmet Cells Not Reportable 03/22/17 13:13 [place] Bodies Not Reportable 03/22/17 13:13 [place] Rings Not Reportable 03/22/17 13:13 Yari Cells Not Reportable 03/22/17 13:13 Bite Cells Not Reportable 03/22/17 13:13 Crenated Cell Not Reportable 03/22/17 13:13 Elliptocytes Not Reportable 03/22/17 13:13 Acanthocytes (Spur) Not Reportable 03/22/17 13:13 Rouleaux Not Reportable 03/22/17 13:13 Hemoglobin C Crystals Not Reportable 03/22/17 13:13 Schistocytes Not Reportable 03/22/17 13:13 Malaria parasites Not Reportable 03/22/17 13:13 Suresh Bodies Not Reportable 03/22/17 13:13 Hem Pathologist Commnt No 03/22/17 13:13 Sodium 137 mmol/L (137-145) 03/21/17 06:52 Potassium 3.7 mmol/L (3.6-5.0) 03/21/17 06:52 Chloride 105.0 mmol/L (98-107) 03/21/17 06:52 Carbon Dioxide 19 mmol/L (22-30) L 03/21/17 06:52 Anion Gap 17 mmol/L 03/21/17 06:52 BUN 6 mg/dL (7-17) L 03/21/17 06:52 Creatinine 0.5 mg/dL (0.7-1.2) L 03/21/17 06:52 Estimated GFR > 60 ml/min 03/21/17 06:52 BUN/Creatinine Ratio 12 % 03/21/17 06:52 Glucose 121 mg/dL (65-100) H 03/21/17 06:52 POC Glucose 86 (70-105) 03/23/17 06:54 Calcium 8.4 mg/dL (8.4-10.2) 03/21/17 06:52 TSH 8.370 mlU/mL (0.270-4.200) H 03/23/17 10:12 Free T4 1.06 ng/dL (0.76-1.46) 03/23/17 10:12 Thyroxine (T4) 10.7 ug/dL (4.0-12.0) 03/23/17 10:12 RPR Nonreactive (Nonreactive) 03/20/17 00:50 Blood Type O POSITIVE 03/20/17 00:50 Antibody Screen Negative 03/20/17 00:50
[2017-03-23] MEDS: COLACE PO SCH (11:12)
[2017-03-23] MEDS: FEOSOL PO SCH (11:13)
[2017-03-23] MEDS: PRENATAL VITAMIN PO SCH (11:13)
--- NOTE | 2017-03-23 11:30 | Discharge Summary ---
Providers - Providers Date of Admission: 03/20/17 00:46 Date of discharge: 03/23/17 Attending physician: MIKE BURRIS MD 03/22/17 16:01 Consult to Physician [CONS] Urgent Consulting Provider: Reason For Exam: abnormal thyroid labs; Place consult to:: Dr. Driscoll Notified:: YES Phone number called:: [phone] [employer] Was contact made?: Yes If yes, spoke with:: Dr. Driscoll Time called:: 16:00 Primary care physician: MIKE BURRIS MD Hospitalization Reason for admission: active labor, IUP at term Delivery: Episiotomy: none Laceration: 2nd degree Incision: normal Other procedures: none complications: none Discharge diagnosis: IUP at term delivered [place] baby: female Hospital course: Unremarkable. Pt evaluated by Hospitalist for elevated TSH, and cleared for discharge - to follow up as outpatient. Condition at discharge: Good Disposition: DC- TO HOME OR SELFCARE - Discharge Diagnoses (1) (normal spontaneous vaginal delivery) Status: Resolved (2) Elevated TSH Status: Acute Plan - Discharge Medications Prescriptions: HYDROcodone/ACETAMINOPHEN [[place] 5-325 Tablet] 1 each PO Q6HR #7 tablet Ibuprofen [Motrin 600 MG tab] 600 mg PO Q8H PRN #30 tablet PRN Reason: Pain Multivitamin with Iron [Multivitamins with Iron] 1 each PO DAILY #30 tablet - Provider Discharge Summary Activity: routine, no sex for 6 weeks, no heavy lifting 4 weeks, no strenuous exercise Diet: routine Instructions: routine Additional instructions: [] Smoking cessation referral if applicable(refer to patient education folder for contact #) [] Refer to [facility] Booklet Call your doctor immediately for: * Fever > 100.5 * Heavy vaginal bleeding ( >1 pad per hour) * Severe persistent headache * Shortness of breath * Reddened, hot, painful area to leg or breast * Drainage or odor from incision. * Keep incision clean and dry at all times and follow doctor's instructions regarding bathing/showering Follow up with Hospitalist re: elevated TSH - Follow up plan Follow up: MIKE BURRIS MD [Primary Care Provider] - 7 Days Forms: [facility] Discharge Summary
== END 2017-03-23 15:05 | disposition home or self-care (01) | DRG 775 ==
LOC: TRG 23:51 → LD 03-20 00:46 → OB 03-20 07:46
PROVIDERS: ADMIT Obstetrics & Gynecology; ATTEND Obstetrics & Gynecology
PROC: 10E0XZZ Delivery of Products of Conception, External Approach (ICD-10-PCS; principal; 2017-03-20)
PROC: 0KQM0ZZ Repair Perineum Muscle, Open Approach (ICD-10-PCS; 2017-03-20)
PROC: 3E0S3BZ Introduction of Anesthetic Agent into Epidural Space, Percutaneous Approach (ICD-10-PCS; 2017-03-20)
PROC: 00HU33Z Insertion of Infusion Device into Spinal Canal, Percutaneous Approach (ICD-10-PCS; 2017-03-20)
DX: O99.824 Streptococcus B carrier state complicating childbirth (principal); O70.1 Second degree perineal laceration during delivery; Z37.0 Single live birth; Z3A.39 39 weeks gestation of pregnancy; O24.429 Gestational diabetes mellitus in childbirth, unspecified control; O76 Abnormality in fetal heart rate and rhythm complicating labor and delivery; O69.81X0 Labor and delivery complicated by cord around neck, without compression, not applicable or unspecified
CPT/HCPCS: 36415; 80048; 82962; 84436; 84439; 84443; 84481; 85007; 85025; 85027; 86592; 86850; 86900; 86901; 87086; 88307; J0290; J1580; J2590; J3010; J7120